=== PATIENT | female | born 1995 | race African-American/Black ===

== ENCOUNTER 2018-08-21 20:02 | Emergency (ER) | payer OTHER ==
[~2018-08-21] VITALS: Ht 170.2 cm; Wt 81.7 kg
[2018-08-21 20:52] LABS: URINE BILIRUBIN NEGATIVE (Negative); URINE BLOOD 3+ (Negative); URINE CLARITY SL CLOUDY; URINE COLOR YELLOW; URINE GLUCOSE-RANDOM* NEGATIVE (Negative); URINE KETONES NEGATIVE (Negative); URINE LEUKOCYTES-REFLEX NEGATIVE (Negative); URINE NITRITE-REFLEX NEGATIVE (Negative); URINE PROTEIN (DIPSTICK) 1+ (Negative); URINE SPECIFIC GRAVITY >= 1.030 (1.005-1.035); URINE UROBILINOGEN 0.2 E.U./dl (0.2-1.0)
[2018-08-21 21:07] LABS: CASTS None Seen /LPF (None Seen); CRYSTALS None Seen /LPF (None Seen); MUCUS 0-3 Light strn/LPF (None Seen); SQUAMOUS 0-3 Few /LPF (0-3); URINE RBC >20 Many /HPF (0-2); URINE WBC-REFLEX 0-5 Rare /HPF (0-5)
[2018-08-21] MEDS ORDERED: PEPCID20 MG PO (21:32)
[2018-08-21] MEDS ORDERED: ZOFRAN4 MG PO (21:32)
[2018-08-21 22:03] VITALS: BP 118/82
== END 2018-08-21 22:04 | disposition home or self-care (01) ==
LOC: ER 20:02
PROVIDERS: Student in an Organized Health Care Education/Training Program
DX: K21.9 Gastro-esophageal reflux disease without esophagitis (principal); Z88.6 Allergy status to analgesic agent; Z98.890 Other specified postprocedural states

== ENCOUNTER 2018-09-21 08:13 | Emergency (ER) | payer OTHER ==
[~2018-09-21] VITALS: Ht 170.2 cm; Wt 81.7 kg
[~2018-09-21 08:13] MED LIST: PEPCID20 MG PO; ZOFRAN4 MG PO
[2018-09-21 09:10] LABS: BASOPHILS 0.5 % (0.0-2.0); EOSINOPHILS 1.1 % (0.0-3.0); HEMATOCRIT 34.5 % (37.0-47.0); HEMOGLOBIN 10.9 gm/dL (12.0-15.0); LYMPHOCYTES 21.8 % (24.0-44.0); MCH 22.8 pg (26.0-34.0); MCHC 31.6 g/dL (28.0-37.0); MCV 72.1 fL (80.0-100.0); MONOCYTES 11.4 % (1.0-8.0); PLATELET COUNT 337 thou/uL (150-400); POLYS 65.2 % (36.0-66.0); RBC 4.79 mil/uL (4.20-5.00); RDW 15.8 % (10.5-14.5); WBC 6.2 thou/uL (4.0-11.0)
[2018-09-21 09:23] LABS: CALCIUM 8.8 mg/dL (8.5-10.1); CREATININE 0.7 mg/dL (0.6-1.0); POTASSIUM 3.6 mmol/L (3.5-5.1)
[2018-09-21 09:24] LABS: HYPOCHROMASIA 1+; MICROCYTES 1+
[2018-09-21 09:29] LABS: URINE BILIRUBIN NEGATIVE (Negative); URINE BLOOD 2+ (Negative); URINE CLARITY CLEAR; URINE COLOR YELLOW; URINE GLUCOSE-RANDOM* NEGATIVE (Negative); URINE KETONES NEGATIVE (Negative); URINE LEUKOCYTES-REFLEX NEGATIVE (Negative); URINE NITRITE-REFLEX NEGATIVE (Negative); URINE PROTEIN (DIPSTICK) NEGATIVE (Negative)
[2018-09-21 09:46] LABS: CASTS None Seen /LPF (None Seen); MUCUS >6 Heavy strn/LPF (None Seen); SQUAMOUS >10 Many /LPF (0-3)
[2018-09-21 09:47] LABS: BACTERIA-REFLEX 1-9 Few /HPF (None Seen); CRYSTALS None Seen /LPF (None Seen); URINE RBC 0-2 Rare /HPF (0-2); URINE WBC-REFLEX 0-5 Rare /HPF (0-5)
[2018-09-21 10:00] VITALS: BP 110/74
== END 2018-09-21 10:00 | disposition home or self-care (01) ==
LOC: ER 08:13
PROVIDERS: Emergency Medicine
DX: R19.7 Diarrhea, unspecified (principal); R53.81 Other malaise; R53.83 Other fatigue; R10.32 Left lower quadrant pain; R10.31 Right lower quadrant pain; Z88.5 Allergy status to narcotic agent; Z98.890 Other specified postprocedural states

== ENCOUNTER 2019-09-05 12:48 | Emergency (ER) | payer OTHER ==
[~2019-09-05] VITALS: Ht 170.2 cm; Wt 90.7 kg
[2019-09-05] MEDS ORDERED: FLONASE 0.05%50 MCG NASAL (13:10)
[2019-09-05] MEDS ORDERED: SUDOGEST30 MG PO (13:10)
[2019-09-05 13:48] VITALS: BP 125/74
== END 2019-09-05 13:49 | disposition home or self-care (01) ==
LOC: ER 12:48
DX: J32.9 Chronic sinusitis, unspecified (principal); H83.2X2 Labyrinthine dysfunction, left ear; J06.9 Acute upper respiratory infection, unspecified